=== PATIENT | male | born 1995 | race Caucasian/White ===

== ENCOUNTER 2017-05-29 16:29 | Outpatient (CLI) | payer BC ==
[2017-05-29 17:34] LABS: #Eosinphils 0.4 thou/uL (0.0-0.7); #Lymphocytes 2.9 thou/uL (1.20-3.40); #Monocytes 0.6 thou/uL (0.11-0.59); #Neutrophils 8.8 thou/uL (1.40-6.50); %Basophils 0.2 % (0.0-1.0); %Eosinophils 2.9 % (0.0-10.0); %Monocytes 4.6 % (0.0-10.0); %Neutrophils 69.3 % (42.0-75.0); Hemoglobin 13.9 g/dL (14.0-18.0); Mean Corpuscular Hemoglobin 29.3 pg (27.0-31.0); Mean Corpuscular Volume 86.4 fl (80.0-94.0); Mean Platelet Volume 9.5 fL (7.4-10.4); Platelet Count 171 thou/uL (130-400); RBC Distribution Width 12.8 % (11.5-14.5); Red Blood Cell (RBC) Count 4.74 mill/uL (4.70-6.10); White Blood Cell (WBC) Count 12.6 thou/uL (4.8-10.8)
[2017-05-29 17:52] LABS: Anion Gap 13 mmol/L (10-20); BUN (Urea Nitrogen) 14 mg/dL (8.9-20.6); Calc. Creatinine Clearance 0 mL/min (70-130); Calcium 9.8 mg/dL (7.8-10.44); Carbon Dioxide 24 mmol/L (22-29); Chloride 108 mmol/L (98-107); Estimated GFR-MDRD Greater than 90; Glucose 97 mg/dL (70-105); Potassium 3.9 mmol/L (3.5-5.1); Sodium 141 mmol/L (136-145)
== END 2017-05-29 16:30 | disposition home or self-care (01) ==
LOC: LABBT 16:29
PROVIDERS: ATTEND Specialist
DX: Z01.812 Encounter for preprocedural laboratory examination (principal); L05.91 Pilonidal cyst without abscess
CPT/HCPCS: 80048; 85025

== ENCOUNTER 2017-06-02 05:45 | Day surgery (SDC) | payer BC ==
[2017-05-29 16:56] VITALS: BMI 45.8
--- NOTE | 2017-05-30 10:41 | HP ---
HISTORY OF PRESENT ILLNESS: Marco Antonio Lovell is a 22-year-old morbidly obese male who is unemployed and not going to school, living with a friend, 329 pounds, 44 BMI has a long history of pilonidal cyst si nce 12 years of age, having undergone incision and drainage at 14 years of age and suffered intermitt ent drainage since that time. He also has problems with bilateral hidradenitis suppurativa. He is a llergic to PENICILLIN. The patient desires pilonidal cyst resection. ALLERGIES: PENICILLIN. SOCIAL HISTORY: Tobacco: He vapes recently. TOBACCO: Tobacco cessation. ALCOHOL: None. PAST SURGICAL HISTORY: Noncontributory. PAST MEDICAL HISTORY: Anxiety, depression, hidradenitis suppurativa, pilonidal cyst. MEDICATIONS: Zoloft 100 mg 2 tablets once a day, Bactrim DS b.i.d. PHYSICAL EXAMINATION: VITAL SIGNS: Weight 329 pounds, 6 foot tall, 44 BMI, 134/90, 96, 97.8 degrees. HEENT: Unremarkable. LUNGS: Clear to auscultation. CARDIAC: Regular rate and rhythm without murmur or gallop. ABDOMEN: Soft, obese, nontender. EXTREMITIES: Hidradenitis suppurativa bilateral axilla with pits and sinuses without active infectio n equally severe both axilla, but no active infection. Presacral area, clefts and sinuses consistent with pilonidal cyst disease in the presacral area. No active infection. ASSESSMENT AND PLAN: 1. Pilonidal cyst. I recommend excision with Z-plasty closure. Risk of infection, bleeding, reoper ation, wound healing problems, discussed with the patient. He consents. 2. Hidradenitis suppurativa, observe. In the future, could consider resection of the sweat bearing area of the axilla. 3. Morbid obesity, in need of weight loss efforts. Probably will help the above-mentioned hidradeni tis. 4. Anxiety, depression. 5. History of tobacco abuse. Currently vapes.
[2017-06-02] MEDS ORDERED: Ondansetron HCl/PF 4 MG/2 ML Vial ONE ×2 (06:32→07:37)
[2017-06-02] MEDS ORDERED: Glycopyrrolate 0.2 MG/ML 5 ML SYRINGE ONE (06:32)
[2017-06-02] MEDS ORDERED: Lidocaine 1% PF 5 ML VIAL ONE (06:32)
[2017-06-02] MEDS ORDERED: Dexamethasone 20 MG/5 ML VIAL ONE (06:32)
[2017-06-02] MEDS ORDERED: PROPOFOL 200 MG/20 ML VIAL ONE (06:32)
[2017-06-02] MEDS ORDERED: Gentamicin 80 MG/2 ML VIAL ONE (06:37)
[2017-06-02] MEDS ORDERED: Ketorolac Tromethamine 30 MG/ML VIAL ONE (06:40)
[2017-06-02] MEDS ORDERED: Fentanyl 250 MCG/5 ML VIAL ONE (06:55)
[2017-06-02] MEDS ORDERED: Famotidine/PF 20 mg/2ml Vial ONE (07:37)
[2017-06-02] MEDS ORDERED: Midazolam HCl 2 mg/2 ml Vial ONE (07:39)
[2017-06-02] MEDS ORDERED: Lidocaine 2% 10 ML INJ ONE (07:40)
[2017-06-02] MEDS ORDERED: Bupivacaine HCl 0.5%/Epinephrine 1:200,000/PF 30 ml Vial ONE (07:40)
--- NOTE | 2017-06-02 09:55 | OP ---
DATE OF PROCEDURE: 06/02/2017 PREOPERATIVE DIAGNOSES: 1. Chronic pilonidal cyst with chronic drainage. 2. Morbid obesity. POSTOPERATIVE DIAGNOSES: 1. Chronic pilonidal cyst with chronic drainage. 2. Morbid obesity. PROCEDURE: Pilonidal cyst resection, Z-plasty flap closure, #10 HAZEL drain. SURGEON: Dr. Dwight Harris ANESTHESIA: General. Local 0.5% Marcaine with epinephrine, 30 mL, mixed with 2% Xylocaine, 10 mL. PROCEDURE: The patient was taken to the operating room where under general anesthesia in the prone p osition, presacral area was prepared with ChloraPrep, draped in routine fashion. Elliptical incision was made and carried down skin and subcutaneous tissue, excising the pilonidal cyst area, limited to the pilonidal cyst area in the upper sacral area. Dissection carried down into the subcutaneous tis anthony, excising completely the disease without extending it to the fascia. He was morbidly obese and t here was adequate subcutaneous tissue coverage of the presacral area. Hemostasis gained with the cau dennis. Flaps configured for a Z-plasty closure using sharp dissection and cautery for hemostasis. On ce the flaps were formed and hemostasis obtained, a #10 HAZEL drain brought out through a right upper bu ttock incision into the wound and drain secured with 3-0 nylon suture, drain tailored to length and a djusted for size of lesion in the subcutaneous tissue. Subcutaneous tissues approximated with contin uous suture of 2-0 Monocryl, skin with continuous subcuticular suture of 4-0 Monocryl and DermaGlue a pplied. Local anesthetic mixture infiltrating skin and subcutaneous tissue about the wound for posto perative pain control. Sterile dressing placed across the drain site. The patient tolerated the pro cedure well.
== END 2017-06-02 10:45 | disposition home or self-care (01) ==
LOC: SDC 05:45
PROVIDERS: ATTEND Specialist
PROC: 0JB90ZZ Excision of Buttock Subcutaneous Tissue and Fascia, Open Approach (ICD-10-PCS; principal; 2017-06-02)
DX: L05.91 Pilonidal cyst without abscess (principal); L73.2 Hidradenitis suppurativa; F17.290 Nicotine dependence, other tobacco product, uncomplicated; F41.9 Anxiety disorder, unspecified; F32.9 Major depressive disorder, single episode, unspecified; E66.01 Morbid (severe) obesity due to excess calories; Z68.41 Body mass index [BMI] 40.0-44.9, adult; Z79.2 Long term (current) use of antibiotics; Z79.899 Other long term (current) drug therapy; Z88.0 Allergy status to penicillin; Z98.890 Other specified postprocedural states
CPT/HCPCS: 88304; J0131; J0670; J1100; J1580; J1885; J2001; J2250; J2405; J2704; J3010; J3370; S0028

== ENCOUNTER 2019-12-15 04:56 | Emergency (ER) | payer BC, SELFPAY | END 2019-12-15 05:17 | disposition home or self-care (01) | LOC: ERS 04:56 | DX: L72.9 Follicular cyst of the skin and subcutaneous tissue, unspecified (principal); F32.9 Major depressive disorder, single episode, unspecified; F17.210 Nicotine dependence, cigarettes, uncomplicated | CPT/HCPCS: 99281 ==

== ENCOUNTER 2021-08-02 15:08 | Emergency (ER) | payer SELFPAY ==
[2021-08-02] MEDS ORDERED: Ketorolac Tromethamine 30 MG/ML VIAL ONE (16:35)
== END 2021-08-02 17:19 | disposition home or self-care (01) ==
LOC: ERS 15:08
DX: S39.012A Strain of muscle, fascia and tendon of lower back, initial encounter (principal); F17.210 Nicotine dependence, cigarettes, uncomplicated; X58.XXXA Exposure to other specified factors, initial encounter
CPT/HCPCS: 96372; 99282; J1885